=== PATIENT | male | born 1985 | race Caucasian/White ===

== ENCOUNTER 2023-10-12 15:59 | Outpatient (CLI) | payer BC | END 2023-10-12 16:00 | disposition home or self-care (01) | LOC: CSHMRI 15:59 | PROVIDERS: ATTEND Family Medicine | DX: M47.26 Other spondylosis with radiculopathy, lumbar region (principal); M48.061 Spinal stenosis, lumbar region without neurogenic claudication | CPT/HCPCS: 72148 ==

== ENCOUNTER 2024-10-31 08:52 | Outpatient (CLI) | payer BC | END 2024-10-31 08:53 | disposition home or self-care (01) | LOC: CSHMRI 08:52 | PROVIDERS: ATTEND Family Medicine | DX: M50.123 Cervical disc disorder at C6-C7 level with radiculopathy (principal); M47.26 Other spondylosis with radiculopathy, lumbar region; M53.82 Other specified dorsopathies, cervical region; M48.061 Spinal stenosis, lumbar region without neurogenic claudication | CPT/HCPCS: 72141; 72148 ==